=== PATIENT | male | born 1995 | race American Indian/Alaskan Native ===

== ENCOUNTER 2016-12-04 02:27 | Emergency (ER) | payer BC | END 2016-12-04 02:37 | disposition left against medical advice (07) | LOC: ED 02:27 | DX: M54.2 Cervicalgia (principal); Z53.21 Procedure and treatment not carried out due to patient leaving prior to being seen by health care provider ==

== ENCOUNTER 2016-12-04 02:30 | Emergency (ER) | payer BC ==
--- NOTE | 2016-12-04 04:02 | Emergency Department Report ---
ED General Adult HPI - General Chief complaint: Extremity Problem,Nontraumatic Stated complaint: SHOULDER AND NECK PAINS Time Seen by Provider: 12/04/16 04:02 Source: patient, RN notes reviewed Mode of arrival: Ambulatory Limitations: No Limitations - History of Present Illness Initial comments: This is a 21-year-old male, he is previously unknown to me, he is right-hand- dominant. He presents to the ER with left-sided trapezius and left proximal shoulder "soreness." This has been going on for 3 days. It worsens with range of motion, and decreases with rest. Pain radiates up to the neck, there is no extremity weakness, numbness, bladder or bowel retention/incontinence, there is no saddle anesthesia. -: Gradual Location: left, upper extremity Radiation: neck Quality: burning, aching Consistency: intermittent Improves with: rest Worsens with: movement Associated Symptoms: denies other symptoms - Related Data Previous Rx's Medication Instructions Recorded Last Taken Type Cyclobenzaprine [Flexeril 10mg] 10 mg PO TID PRN #14 tablet 12/04/13 Unknown Rx HYDROcodone/APAP 5-325 [[place] 1 each PO Q6HR PRN #8 tablet 12/04/13 Unknown Rx 5/325] Naproxen [Naprosyn TAB] 500 mg PO BID #30 tablet 12/04/13 Unknown Rx Acetaminophen [Tylenol Arthritis] 650 mg PO Q6HR PRN #30 tablet.er 12/04/16 Unknown Rx Ketorolac [Toradol] 10 mg PO Q6H PRN #20 tablet 12/04/16 Unknown Rx Allergies Allergy/AdvReac Type Severity Reaction Status Date / Time No Known Allergies Allergy Unverified 12/04/13 09:16 ED Review of Systems ROS: Stated complaint: SHOULDER AND NECK PAINS Other details as noted in HPI Constitutional: denies: malaise Eyes: denies: vision change ENT: denies: epistaxis Respiratory: denies: cough Cardiovascular: denies: chest pain Gastrointestinal: denies: abdominal pain Musculoskeletal: arthralgia Skin: denies: lesions Neurological: denies: numbness, paresthesias, confusion Psychiatric: denies: anxiety ED Past Medical Hx - Past Medical History Previous Medical History?: No - Surgical History Past Surgical History?: Yes Additional Surgical History: BOTH HANDS / LEFT EYE - Social History Smoking Status: Current Every Day Smoker Substance Use Type: Alcohol - Medications Home Medications: Home Medications Medication Instructions Recorded Confirmed Last Taken Type Cyclobenzaprine [Flexeril 10mg] 10 mg PO TID PRN #14 tablet 12/04/13 Unknown Rx HYDROcodone/APAP 5-325 [[place] 1 each PO Q6HR PRN #8 tablet 12/04/13 Unknown Rx 5/325] Naproxen [Naprosyn TAB] 500 mg PO BID #30 tablet 12/04/13 Unknown Rx Acetaminophen [Tylenol Arthritis] 650 mg PO Q6HR PRN #30 tablet.er 12/04/16 Unknown Rx Ketorolac [Toradol] 10 mg PO Q6H PRN #20 tablet 12/04/16 Unknown Rx ED Physical Exam - General Limitations: No Limitations General appearance: alert, in no apparent distress - Head Head exam: Present: atraumatic, normocephalic - Eye Eye exam: Present: normal appearance, EOMI. Absent: nystagmus - ENT ENT exam: Present: normal exam, normal orophraynx, mucous membranes moist, normal external ear exam - Neck Neck exam: Present: normal inspection, tenderness (there is reproducible left- sided trapezius tenderness. There is no paracervical tenderness. There is no cervical spine tenderness.), full ROM - Respiratory Respiratory exam: Present: normal lung sounds bilaterally. Absent: respiratory distress, wheezes, rales, rhonchi, stridor, chest wall tenderness, accessory muscle use, decreased breath sounds, prolonged expiratory - Cardiovascular Cardiovascular Exam: Present: regular rate, normal rhythm, normal heart sounds. Absent: bradycardia, tachycardia, irregular rhythm, systolic murmur, diastolic murmur, rubs, gallop - GI/Abdominal GI/Abdominal exam: Present: soft, normal bowel sounds. Absent: distended, tenderness, guarding, rebound, rigid, pulsatile mass - Rectal Rectal exam: Present: deferred - Extremities Exam Extremities exam: Present: normal inspection, full ROM, normal capillary refill. Absent: tenderness, pedal edema, joint swelling, calf tenderness - Back Exam Back exam: Present: normal inspection, full ROM, other (sensation intact to light touch in the bilateral deltoid, median, radial, ulnar distribution). Absent: tenderness, CVA tenderness (R), CVA tenderness (L), muscle spasm, paraspinal tenderness, vertebral tenderness - Neurological Exam Neurological exam: Present: alert, oriented X3, normal gait, other (Extraocular movements intact. Tongue midline. No facial droop. Facial sensation intact to light touch in the V1, V2, V3 distribution bilaterally. 5 and 5 strength in 4 extremities.. Sensation is intact to light touch in 4 extremities.). Absent : motor sensory deficit - Psychiatric Psychiatric exam: Present: normal affect, normal mood - Skin Skin exam: Present: warm, dry, intact, normal color. Absent: rash ED Course Vital Signs 12/04/16 12/04/16 02:36 04:05 Temperature 98.3 F 97.8 F Pulse Rate 81 84 Respiratory 20 20 Rate Blood Pressure 113/65 Blood Pressure 124/77 [Left] O2 Sat by Pulse 99 100 Oximetry ED Medical Decision Making - Lab Data Vital Signs 12/04/16 12/04/16 02:36 04:05 Temperature 98.3 F 97.8 F Pulse Rate 81 84 Respiratory 20 20 Rate Blood Pressure 113/65 Blood Pressure 124/77 [Left] O2 Sat by Pulse 99 100 Oximetry - Medical Decision Making Differential diagnosis: Sprain, strain, arthritis Assessment and plan: 21-year-old male with full active and passive range of motion in bilateral upper extremities, neurovascularly intact, no indication for x-ray at this time, he is sleeping comfortably on his initial examination, there is no redness, pus or streaking patient is treated symptomatically and expectantly, he can follow up with an outpatient primary care doctor or orthopedist. His exam is not consistent with epidural compression syndrome. Critical care attestation.: If time is entered above; I have spent that time in minutes in the direct care of this critically ill patient, excluding procedure time. ED Disposition Clinical Impression: Left shoulder pain Disposition: DC-01 TO HOME OR SELFCARE Is pt being admited?: No Does the pt Need Aspirin: No Condition: Stable Instructions: Muscle Strain (ED) Additional Instructions: Rest and avoid heavy lifting. Avoid strenuous physical activity. Take the pain medication as directed. Physical activity as tolerated. Follow-up with the primary care doctor or pain specialist or revenue tax specialist within the next 4-6 weeks. Return to the ER right away with new pain , worsened pain, migration of pain, fevers, chills, lethargy, weakness, projectile vomiting, inability to tolerate feeds, confusion. Referrals: PRIMARY CARE, [Primary Care Provider] - 3-5 Days OJ PURCELL MD [Staff Physician] - 3-5 Days AMAYA ELISE MD [Staff Physician] - 3-5 Days
[2016-12-04] MEDS ORDERED: TORADOL IM ONE (04:06)
[2016-12-04 04:07] VITALS: BP 124/77
== END 2016-12-04 04:23 | disposition home or self-care (01) ==
LOC: ED 02:30
DX: M25.512 Pain in left shoulder (principal); M54.2 Cervicalgia; F17.210 Nicotine dependence, cigarettes, uncomplicated
CPT/HCPCS: 96372; 99282; J1885